=== PATIENT | male | born 1955 | race Two or more races ===

== ENCOUNTER 2017-09-14 14:28 | Emergency (ER) | payer BC, OTHER ==
[~2017-09-14] VITALS: Ht 177.8 cm; Wt 77.1 kg
[2017-09-14 14:30] VITALS: BP 94/57
[2017-09-14] MEDS ORDERED: KETOROLAC TROMETHAMINE INJ 30 MG/ML VIAL ONE (14:49)
[2017-09-14] MEDS ORDERED: KETOROLAC TROMETHAMINE INJ 60 MG/2 ML VIAL IM ONE (15:00)
== END 2017-09-14 14:56 | disposition home or self-care (01) ==
LOC: ER 14:29
DX: M54.5 Low back pain (principal); E78.00 Pure hypercholesterolemia, unspecified
CPT/HCPCS: 96372; 99283; A4606; J1885; Z7610